=== PATIENT | male | born 1955 | race Hispanic/Latino ===

== ENCOUNTER 2017-09-25 06:11 | Day surgery (SDC) | payer OTHER ==
[2017-09-25] MEDS ORDERED: ECOTRIN PO ONE (06:30)
[2017-09-25 06:58] LABS: Basophils % (Auto) 0.6 % (0.0-1.8); Eosinophils % (Auto) 4.3 % (0.0-4.3); Hematocrit 47.9 % (35.5-45.6); Hemoglobin 16.5 gm/dl (11.8-15.2); Mean Corpuscular HGB Conc 34 % (32-34); Mean Corpuscular Hemoglobin 32 pg (28-32); Mean Corpuscular Volume 93 fl (84-94); Platelet Count 194 K/mm3 (140-440); Red Blood Count 5.17 M/mm3 (3.65-5.03); Red Cell Distribution Width 13.7 % (13.2-15.2)
[2017-09-25] MEDS ORDERED: NACL 0.9% 500 ML 500 ML IV SCH (07:00)
[2017-09-25 07:09] LABS: INR 1.03 (0.87-1.13)
[2017-09-25 07:13] LABS: Anion Gap 18 mmol/L; BUN/Creatinine Ratio 20; Blood Urea Nitrogen 20 mg/dL (9-20); Calcium 9.5 mg/dL (8.4-10.2); Carbon Dioxide 23 mmol/L (22-30); Chloride 100.1 mmol/L (98-107); Glucose 170 mg/dL (75-100); Potassium 4.3 mmol/L (3.6-5.0); Sodium 137 mmol/L (137-145)
[2017-09-25] MEDS: HEPARIN/NS 5000 UNIT/500ML(CATH LAB) 1,000 ML IR ONE ×2 (08:15→08:18)
[2017-09-25] MEDS: VERSED ONE ×2 (08:15→08:17)
[2017-09-25] MEDS: SUBLIMAZE ONE ×2 (08:15→08:17)
[2017-09-25] MEDS: CALAN ONE ×2 (08:16→08:18)
[2017-09-25] MEDS: NITROGLYCERIN SYRINGE 3 ML ONE ×2 (08:16→08:19)
[2017-09-25] MEDS: XYLOCAINE 2% INFILTRATI ONE ×2 (08:16→08:17)
[2017-09-25] MEDS: HEPARIN 10,000 UNITS/10 ML ONE ×2 (08:16→08:18)
--- NOTE | 2017-09-25 10:01 | Cardiac Catherization Report ---
REFERRING PHYSICIAN: Kami Green MD INDICATION FOR PROCEDURE: The patient is a pleasant 61-year-old gentleman with shortness of breath, abnormal stress test, referred for left heart catheterization. Risks, benefits, and potential alternatives explained at length prior to obtaining informed consent. 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 Ben's test in right hand was normal. A 2 mL of 2% lidocaine used to anesthetize the right wrist. A standard 6-Citizen Of [place] hydrophilic sheath used to cannulate the right radial artery via modified Seldinger technique. All exchanges performed to exchange the J-tip guidewire. JL3.5 catheter used to engage left main. No dampening or ventricularization. Cineangiography performed in all projections. JR4 catheter used to cross the aortic valve under fluoroscopic guidance. Left ventriculography performed in 30 KHANNA and 30 HARVINDER projections via hand injections. Catheter flushed. Manual pullback performed with continuous pressure monitoring. Catheter used to engage the right coronary. No dampening or ventricularization. Cineangiography performed in all projections. Next, catheter removed from the body of wire, sheath removed. Manual pressure used to achieve hemostasis. DATA: Aortic pressure is 150/90, LV pressure is 150, LVEDP of 18 mmHg. Left ventriculography reveals normal systolic performance with estimated ejection fraction of 55-60%. No evidence of aortic stenosis. CORONARY ANATOMY: This is a right dominant system. Left main without significant disease, bifurcates left anterior descending and left circumflex. LAD is a moderate sized vessel, courses anterior intergroove, wraps around the apex. Scattered luminal irregularities. No obstructive disease. Left circumflex is a moderate sized vessel, courses AV groove. No scattered luminal irregularities with a maximal narrowing of 25% in the mid segment, but no obstructive disease identified. The right coronary is a moderate sized vessel, courses AV groove, distally bifurcates into the posterior descending and posterolateral branches. No discrete stenosis identified, scattered luminal irregularities, but no obstructive disease. CONCLUSIONS: 1. Mild diffuse scattered luminal irregularities, but no obstructive coronary disease in this right dominant system. 2. Normal left ventricular systolic performance, estimated ejection fraction of 55-60% without evidence of aortic stenosis. 3. Normal LVEDP. Standard radial care, results of the procedures were explained at length to the patient and family. All questions and concerns were addressed. FOLLOWUP: With Dr. Green in the office. JOB# [id number] SBJosh/[id number]
[2017-09-25 11:55] VITALS: BP 165/90
--- NOTE | 2017-09-26 15:07 | Short Stay Summary ---
Short Stay Documentation Date of service: 09/25/17 - History H&P: obtained from office - Allergies and Medications Current Medications: Allergies pecan nut Allergy (Unverified 09/25/17 06:13) Unknown Penicillins Allergy (Unverified 09/25/17 06:12) Unknown shrimp Allergy (Unverified 09/25/17 06:13) Unknown Home Medications Medication Instructions Recorded Confirmed Last Taken Type Amlodipine Besylate [Amlodipine 5 mg PO DAILY 09/25/17 09/25/17 09/24/17 History Besylate] Meloxicam [Meloxicam] 15 mg PO DAILY 09/25/17 09/25/17 09/24/17 History Metformin HCl [metFORMIN ER] 500 mg PO QHS 09/25/17 09/25/17 09/24/17 History Metoprolol [Lopressor] 25 mg PO QHS 09/25/17 09/25/17 09/24/17 History Rivaroxaban [Xarelto] 20 mg PO DAILY 09/25/17 09/25/17 09/21/17 History Zolpidem Tartrate [Zolpidem 5 mg PO QHS PRN 09/25/17 09/25/17 09/24/17 History Tartrate] - Brief post op/procedure progress note Date of procedure: 09/25/17 Pre-op diagnosis: chest pain; abnormal stress test Post-op diagnosis: same Procedure: [facility] Anesthesia: local Estimated blood loss: none Condition: stable - Disposition Disposition: [id number] TO HOME OR SELFCARE - Discharge Diagnoses (1) HTN (hypertension) Status: Chronic Qualifiers: Hypertension type: H (2) Abnormal stress test Status: Acute (3) Atrial fibrillation Status: Chronic Qualifiers: Atrial fibrillation type: A Short Stay Discharge Plan Activity: advance as tolerated Diet: low fat, low cholesterol, low salt Wound: open to air, keep clean and dry, per your surgeon's advice Follow up with: LILY RFYE MD [Primary Care Provider] - 7 Days Forms: CardCath PCI D/C Instructions
== END 2017-09-25 11:45 | disposition home or self-care (01) ==
LOC: CATH 06:11 → CATHLABREC 06:11
PROVIDERS: ATTEND Internal Medicine
DX: R06.02 Shortness of breath (principal); R94.39 Abnormal result of other cardiovascular function study; I77.89 Other specified disorders of arteries and arterioles; I48.2 Chronic atrial fibrillation; I10 Essential (primary) hypertension; B18.2 Chronic viral hepatitis C; Z79.01 Long term (current) use of anticoagulants; Z98.890 Other specified postprocedural states; Z88.0 Allergy status to penicillin; Z91.013 Allergy to seafood; Z91.018 Allergy to other foods; Z79.899 Other long term (current) drug therapy
CPT/HCPCS: 36415; 80048; 82962; 85025; 85610; 85730; 93005; 93010; 93458; 99156; C1769; C1894; J1644; J2250; J3010; J7040; Q9967